=== PATIENT | female | born 1980 | race Caucasian/White ===

== ENCOUNTER 2017-12-24 13:19 | Emergency (ER) | payer OTHER | END 2017-12-24 15:27 | disposition home or self-care (01) | LOC: ER 15:27 | DX: S06.0X0A Concussion without loss of consciousness, initial encounter (principal); S09.93XA Unspecified injury of face, initial encounter; S20.222A Contusion of left back wall of thorax, initial encounter; Z88.4 Allergy status to anesthetic agent; Y04.0XXA Assault by unarmed brawl or fight, initial encounter; Y93.89 Activity, other specified; Y99.8 Other external cause status; Y92.89 Other specified places as the place of occurrence of the external cause | CPT/HCPCS: 70450; 99284-25 ==